=== PATIENT | female | born 1990 | race African-American/Black ===

== ENCOUNTER 2017-12-07 07:18 | Emergency (ER) | payer OTHER ==
[~2017-12-07] VITALS: Ht 165.1 cm; Wt 81.6 kg
--- NOTE | 2017-12-07 09:00 | Diagnostic Imaging Report ---
Foot complete CPT code: 53544 Indication: Fall 2 months ago, pain at first and fifth MTP joints Technique: A.P., oblique and lateral views of the left foot obtained. Comparison: None Findings: Calcaneus is intact and normal in morphology. The midfoot is intact. No evidence of displaced fracture or dislocation involving any of the digits. There are no degenerative changes. No radiopaque foreign bodies in the soft tissues. IMPRESSION: No osseous injury or other abnormality to explain pain. Signed by: Dr. Dilshad Alfred MD on 12/07/2017 8:56 AM
== END 2017-12-07 09:28 | disposition home or self-care (01) ==
LOC: ER 07:18
DX: M79.672 Pain in left foot (principal); M25.475 Effusion, left foot; M20.12 Hallux valgus (acquired), left foot; X50.1XXA Overexertion from prolonged static or awkward postures, initial encounter
CPT/HCPCS: 99283